=== PATIENT | male | born 1970 | race Caucasian/White ===

== ENCOUNTER 2021-01-17 13:23 | Emergency (ER) | payer OTHER, SELFPAY ==
--- NOTE | ~2021-01-17 | XR_ITS ---
EXAMINATION: XR hip LT 2V w AP pelvis EXAM DATE: 01/17/2021 16:47 INDICATION: Pelvic, left hip pain. Back surgery last week. TECHNIQUE: Left hip frontal, crosstable lateral and 'frog-leg' projections for interpretation. Fronta l projection pelvis. There is no prior study for comparison. FINDINGS: Smooth left hip femoral head contour, no radiographic evidence of avascular necrosis. Ther e is moderate left hip, mild to moderate right hip primary osteoarthritis. There are no acute fractur es or dislocations identified. There is no subcutaneous gas. The soft tissue is unremarkable. The re are no radiopaque foreign bodies. IMPRESSION: Moderate left hip osteoarthritis. Reviewed, dictated and finalized at location A. I SITE LEASING CONSULTANT
[2021-01-17 13:28] VITALS: PULSE 114; RESP 18; TEMP 37.2; O2SAT 98
--- NOTE | 2021-01-17 16:04 | ED.LOWEXIN ---
HPI - Extremity Injury (Lower) General Chief Complaint: Extremity Injury, Lower Stated Complaint: back pain/hip pain Time Seen by Provider: 01/17/21 15:28 Source: patient Mode of arrival: wheelchair Limitations: no limitations History of Present Illness HPI Narrative: Patient is a 50-year-old male complaining of left hip pain, 9 out of 10, sharp, nonradiating started approximately 2 weeks ago due to a fall, was about to have an outpatient MRI of that hip done tonight, ordered by his orthopedic doctor, but states that he is able to tolerate the pain laying on the MRI machine so he was brought here to the emergency room from our MRI department. Patient states that he recently had back surgery done 5 days ago and [facility]. Patient denies any recent injury. Patient denies any weakness, numbness, incontinence, fever or chills. Related Data Home Medications Medication Instructions Recorded Confirmed Acid Transportation Dispatcher (omeprazole) 20 mg HS 01/16/21 01/17/21 amlodipine 10 mg HS 01/16/21 01/17/21 atorvastatin 40 mg PO HS 01/16/21 01/17/21 hydrochlorothiazide 25 mg PO HS 01/16/21 01/17/21 lisinopril 20 mg PO HS 01/16/21 01/17/21 Allergies Allergy/AdvReac Type Severity Reaction Status Date / Time No Known Allergies Allergy Verified 01/16/21 14:52 Review of Systems Review of Systems: All systems reviewed & are unremarkable except as noted in HPI and below Constitutional: Constitutional: Denies body ache(s), Denies chills, Denies excessive sweating, Denies fatigue, Denies fever(s), Denies headache(s), Denies lethargy, Denies malaise, Denies weakness and Denies weight loss Eyes: Eyes: Denies blurry vision, Denies change in vision and Denies loss of vision ENT: Denies dizziness, Denies ear discharge, Denies headache(s), Denies lip swelling, Denies epistaxis, Denies nasal congestion, Denies neck pain, Denies throat swelling and Denies tongue swelling Cardiovascular: Cardiovascular: Denies chest pain, Denies chest pain at rest, Denies chest pain with activity, Denies diaphoresis, Denies rapid heart rate, Denies edema, Denies irregular heart rhythm, Denies lightheadedness, Denies palpitations, Denies dyspnea and Denies dyspnea on exertion Respiratory: Respiratory: Denies chest congestion, Denies cough, Denies hemoptysis, Denies dyspnea and Denies dyspnea on exertion Gastrointestinal: Gastrointestinal: Denies abdominal pain, Denies melena, Denies hematochezia, Denies diarrhea, Denies nausea, Denies vomiting and Denies hematemesis Musculoskeletal: Musculoskeletal: Denies abnormal gait, Denies deformity, Denies joint swelling, Denies limited range of motion, Denies neck pain and Denies numbness Neurologic: Denies Abnormal speech present, Denies abnormal gait, Denies confusion, Denies dizziness, Denies headache(s), Denies focal weakness, Denies loss of vision, Denies numbness, Denies Other visual disturbances, Denies Sensory deficit (Neuro) and Denies weakness Psychiatric: Psychiatric: Denies confusion, Denies depression, Denies auditory hallucinations, Denies homicidal ideation and Denies suicidal ideation Endocrine: Endocrine: Denies cold intolerance, Denies excessive sweating, Denies fatigue, Denies heat intolerance and Denies palpitations Hematologic/Lymphatic: Hematologic/Lymphatic: Denies easy bleeding and Denies easy bruising Allergic/Immunologic: Allergic/Immunologic: Denies lip swelling, Denies throat swelling and Denies tongue swelling PMFSH Family History Family History Grandparent Heart disease Sibling Colitis Sibling Fibromyalgia Father Alcohol abuse Mother Cancer Social History Social History Smoking status: Former smoker Tobacco type: cigarettes Exam Const: General: cooperative, healthy appearing, comfortable, no acute distress, well developed, alert and awake; No confusion
[2021-01-17] MEDS: HYDROcodone/acetaminophen (*CRX) 5-325 MG TABLET 1 TAB PO (16:15)
[2021-01-17] MEDS: KETOROLAC 30 MG/ML VIAL (*BKC) IM (17:59)
[2021-01-17] MEDS: diazePAM INJ (*CRX) 10 MG/2 ML SYRINGE IM (18:00)
--- NOTE | 2021-01-17 18:52 | PC.NURSE ---
pt's mother called and stated that nothing is being done and stated that he needs more pain medication to help with patient's pain. mother recommended we call patient's spinal surgeon. Discuss concerns with ERP and paged oncall physician for Dr Gillespie, the patient's spinal surgeon. Patient states that he does not have a prescription for norco or any other pain medication and stated they came to ED today specifically for medication for MRI. Mother later came to patient's bedside. Mother tearful and stating that [facility] is a trauma hospital and that it is advertised that MRI is available 20/09. Charge nurse aware and spoke with patient and family. Upon discharge, discussed discharge information with patient and mother. Mother states they are not going back to the rehab center and that they are going home. Mother states that it is ridiculous that a physician has not laid hands on him to do a physical exam . mother states that is how you diagnose many issues Discussion and education held with patient and family about further concerns. Mother and patient both stated they will follow up with PCP on Tuesday
== END 2021-01-17 19:11 | disposition home or self-care (01) ==
PROVIDERS: Emergency Provider Emergency Medicine
DX: M25.552 Pain in left hip (principal); Z87.891 Personal history of nicotine dependence
CPT/HCPCS: 73502; 96372; 99284; A9270; J1885; J3360

== ENCOUNTER 2021-01-20 13:57 | Inpatient (IN) | payer MEDICARE, SELFPAY ==
--- NOTE | ~2021-01-20 | MR_ITS ---
EXAMINATION: MR hip LT wo con DATE: 01/20/2021 19:03 INDICATION: Left hip pain post recent back surgery TECHNIQUE: Magnetic resonance imaging (MRI) of the left hip was performed without intravenous contra st. Sequences included full-field axial PD-weighted FS FSE and T1-weighted FSE, coronal of the pelvis with PD-weighted FS FSE, T2-weighted FSE and T1-weighted FSE, small field of view of the affected h ip with axial PD-weighted FS FSE, sagittal PD-weighted FS FSE, coronal PD-weighted FS FSE and reaves l T2 weighted FSE. Additional radial T1-weighted FGR oriented orthogonal to the acetabular rim were o btained for evaluation of the labrum. COMPARISON: None FINDINGS: Bones/labrum/cartilage: Bone alignment is normal. Postoperative change of prior L2-L4 laminectomies. No fracture, avascular necrosis or pathologic marrow replacing process. Mild left hip osteoarthritis with small to moderate- sized marginal osteophytes about the femoral head and acetabulum, the latter partially replacing the degenerated labrum. No degenerative subarticular changes. Similar findings suggested at the contralat eral right hip on the larger field of view images. Likely prior labral cyst at the posterior superior right acetabular labrum. Fluid: Symmetric physiologic amount of fluid within both hip joints. No bursitis or other abnormal fluid col lections. Soft tissues: No asymmetric muscular atrophy in the visualized pelvis or proximal thighs. There is increased muscle signal in the lumbosacral posterior paraspinal musculature slightly more prominent on the right than the left suggesting ongoing denervation change related to the prior more cephalad back surgery. The iliopsoas, gluteal and proximal hamstring tendons are normal. Prostatomegaly measuring 4.7 x 4.0 cm. Limited evaluation of visceral organs of the pelvis is otherwise unremarkable. Small left and moderat e-sized right fat-containing inguinal hernias. No pathologically enlarged pelvic/inguinal lymphadenop athy. IMPRESSION: 1. Relatively symmetric mild bilateral hip osteoarthritis with labral degeneration. 2. L2-L4 laminectomies with increased signal in the posterior lumbosacral paraspinal musculature, rig ht greater than left which can be seen with ongoing denervation change related to prior surgery. 3. Small left and moderate-sized right fat-containing inguinal hernias. Reviewed, dictated and finalized at location A. AND AUXILIARIES SUPERVISOR IMPRESSION: 1. Relatively symmetric mild bilateral hip osteoarthritis with labral degenerat ion. 2. L2-L4 laminectomies with increased signal in the posterior lumbosacral lizbeth avril musculature, right greater than left which can be seen with ongoing dener vation change related to prior surgery. 3. Small left and moderate-sized right fat-containing inguinal hernias.
--- NOTE | ~2021-01-20 | MR_ITS ---
EXAMINATION: MR thoracic spine wo con DATE: 01/20/2021 19:03 INDICATION: Back pain. Sciatica. TECHNIQUE: Magnetic resonance imaging (MRI) of the thoracic spine was performed without intravenous c ontrast. Sagittal localizer T1-weighted FSE of the cervical spine was obtained. Thoracic spine sequen piyush included sagittal T2-weighted FSE, sagittal T1-weighted FSE, sagittal T2-weighted FS FSE, and axi al T2-weighted FSE. COMPARISON: Chest CT 01/19/2021 FINDINGS: There is 6 degrees dextrocurvature of mid thoracic spine. There is 4 degrees levocurvature of upper thoracic spine. There is mild chronic anterior wedging of T11 and T12 vertebral bodies. Ther e are changes of posterior fusion procedure at T10-T11 with pedicle screws. Intervertebral disc heigh ts are normal. At T5-T6, there is a right central protrusion with mild central canal stenosis. At T7- T8, there is a right central extrusion with mild central canal stenosis. At T11, there is a 13 x 10 m m calcified mass in the central spinal canal with deformation of the spinal cord in this area. There is artifact from the screws at T10 and T11. The spinal cord signal intensity is normal where it is we ll visualized superior to the surgical levels. There is multilevel facet joint osteoarthritis, severe on the right at T8-T9 and T9-T10. On the right, there is mild neural foraminal stenosis at T8-T9 and T9-T10. There are bilateral laminotomies at T10 and T11. IMPRESSION: 1. 13 x 10 mm calcified mass in the central spinal canal at T11 with deformation of the spinal cord. Laminotomies and posterior fusion procedure at T10-11. The calcified mass may be a sequestered disc o r meningioma. 2. Mild thoracic spondylosis at other levels. Reviewed, dictated and finalized at location B. NFORMATICIAN IMPRESSION: 1. 13 x 10 mm calcified mass in the central spinal canal at T11 with deformatio n of the spinal cord. Laminotomies and posterior fusion procedure at T10-11. Th e calcified mass may be a sequestered disc or meningioma. 2. Mild thoracic spondylosis at other levels.
--- NOTE | ~2021-01-20 | MR_ITS ---
EXAMINATION: MR lumbar spine wo con DATE: 01/20/2021 19:03 INDICATION: Sciatica. TECHNIQUE: Magnetic resonance imaging (MRI) of the lumbar spine was performed without intravenous con trast. Sequences included sagittal T2-weighted FSE, sagittal T2-weighted FS FSE, sagittal T1-weighted FSE, and axial T2-weighted FSE. COMPARISON: None FINDINGS: There is 5 degrees dextrocurvature of lumbar spine. There is mild chronic anterior wedging of L1 vertebral body. Intervertebral disc heights are normal in lumbar spine. The conus medullaris is at T12. There are laminectomies from L2 to L4. The following disc levels are specifically discussed: L1-L2: The disc does not extend beyond the endplate margin. There is moderate bilateral facet joint o steoarthritis. There is no neural foraminal stenosis. There is no central canal stenosis. L2-L3: The disc is mildly bulging. There is mild bilateral facet joint osteoarthritis. There is mild right neural foraminal stenosis. There is no central canal stenosis. L3-L4: The disc is bulging and has an annular fissure. There is mild bilateral facet joint osteoarthr itis. There is moderate bilateral neural foraminal stenosis. There is no central canal stenosis. L4-L5: The disc is bulging and has an annular fissure. There is moderate bilateral facet joint osteoa rthritis. There is moderate bilateral neural foraminal stenosis. There is mild central canal stenosis with posterior decompression. There is moderate stenosis of the lateral recesses. L5-S1: There is a central protrusion. There is severe bilateral facet joint osteoarthritis. There is mild right neural foraminal stenosis. There is mild central canal stenosis. IMPRESSION: 1. Moderate lumbar spondylosis. Reviewed, dictated and finalized at location B. UNT SUPPORT ASSOCIATE
--- NOTE | ~2021-01-20 | CT_ITS ---
EXAMINATION: CTA chest PE protocol DATE: 01/26/2021 22:34 INDICATION: Tachycardia. TECHNIQUE: Computed tomography angiography (CTA) of the chest was performed with 100 mL Omnipaque-350 intravenous contrast timed to evaluate the pulmonary arteries. Coronal maximum intensity projection 3D-reconstructions were created by the technologist. Automated exposure control and iterative reconst ruction technique were employed. The dose-length product was 966.10 mGy-cm. COMPARISON: Chest CT 01/19/2021 FINDINGS: The lungs demonstrate mild atelectasis. No pleural effusion. The heart size is normal. No p ericardial effusion. There is no pulmonary embolus. There is a 1.7 cm mass of fat in right adrenal gl and, consistent with a myelolipoma. There are healing fractures of right ninth-11th ribs. There are c hanges of posterior fusion procedure at T10-T11. There is a 14 mm calcified mass in central spinal ca nal at T10-T11. IMPRESSION: 1. No pulmonary embolus. 2. 14 mm calcified mass in central spinal canal at T10-T11, which may be a sequestered disc or mening ioma. Reviewed, dictated and finalized at location A. VIORAL HEALTH CASE MANAGER IMPRESSION: 1. No pulmonary embolus. 2. 14 mm calcified mass in central spinal canal at T10-T11, which may be a sequ estered disc or meningioma.
[2021-01-20 14:01] VITALS: BP 127/82; PULSE 120; RESP 18; TEMP 36.8; O2SAT 98
[2021-01-20] MEDS: MORPHINE SULFATE (*CRX) 4 MG/ML INJ IV PUSH ×3 (14:43→19:27)
--- NOTE | 2021-01-20 14:43 | ECG_ITS ---
Measurements Intervals [place] Rate: 123 P: 51 WI: 152 QRS: 36 QRSD: 100 T: 37 QT: 310 QTc: 444 Interpretive Statements SINUS TACHYCARDIA DELAYED PRECORDIAL R/S TRANSITION ABNORMAL ECG Electronically Signed On 01-20-2021 16:29:21 GOLD LEAF LAYER by Marlo Lopez D.O.
--- NOTE | 2021-01-20 15:08 | ED.GENADULT ---
HPI - General Adult General Chief complaint: Extremity Injury, Lower Stated complaint: hip pain Time Seen by Provider: 01/20/21 14:09 Source: patient Mode of arrival: EMS History of Present Illness HPI narrative: Patient is a 50 y/o male complaining of left hip pain starting about 6 days ago. He describes his pain as aching and it becomes sharp sometimes. He rates his pain as 8/10. There is no pain radiation. He states that movement worsens the pain. Of note, he had back surgery 1 week ago at [facility] in [place]. He states that he has no significant back pain. His left hip pain started after surgery while he was undergoing physical therapy. Related Data Home Medications Medication Instructions Recorded Confirmed Acid Gaming Pit Boss (omeprazole) 20 mg HS 01/16/21 01/17/21 amlodipine 10 mg HS 01/16/21 01/17/21 atorvastatin 40 mg PO HS 01/16/21 01/17/21 hydrochlorothiazide 25 mg PO HS 01/16/21 01/17/21 lisinopril 20 mg PO HS 01/16/21 01/17/21 Allergies Allergy/AdvReac Type Severity Reaction Status Date / Time No Known Allergies Allergy Verified 01/21/21 00:42 Review of Systems Constitutional: Constitutional: Denies chills, Denies fever(s), Denies headache(s) and Denies weakness Eyes: Eyes: Denies blurry vision ENT: Denies headache(s) and Denies neck pain Cardiovascular: Cardiovascular: Denies chest pain and Denies dyspnea Respiratory: Respiratory: Denies cough and Denies dyspnea Gastrointestinal: Gastrointestinal: Denies abdominal pain, Denies diarrhea, Denies nausea and Denies vomiting Genitourinary: Genitourinary: Denies hematuria and Denies dysuria Musculoskeletal: Musculoskeletal: Reports as per HPI, Denies back pain, Reports arthralgias (left hip pain) and Denies neck pain Neurologic: Denies headache(s) and Denies weakness [facility] Family History Family History Grandparent Heart disease Sibling Colitis Sibling Fibromyalgia Father Alcohol abuse Mother Cancer Social History Social History Smoking status: Former smoker Tobacco type: cigarettes Alcohol intake: never Substance use: never Spiritual care concerns: No Exam Const: General: no acute distress and well developed Orientation/consciousness: oriented to person, oriented to place, oriented to time and patient oriented x3 HENMT: Head: normocephalic Ears: external ears normal General nose exam: Normal external nose present Eyes: General: appearance normal, both eyes and all related structures Conjunctivae: conjunctivae normal Neck: Neck: normal visual inspection and full ROM Chest: Chest palpation & inspection: normal inspection of the chest and no tenderness Resp: Effort & Inspection: normal respiratory effort Auscultation: clear to auscultation bilaterally Cardio: Rate: tachycardic Rhythm: regular rhythm GI: GI Palp: No abdominal tenderness and Yes Soft to palpation Skin: General skin exam: normal color and turgor normal Wounds: wounds noted (incision on back clean and intact) Neuro: General: oriented to person, oriented to place, oriented to time and patient oriented x3 Cognition (Neuro): normal cognition Extrem: General: normal to inspection, full ROM and no pedal edema Psych: Appearance: grossly normal Mental Status: mental status grossly normal Affect: normal affect Course Reevaluation(s) Reevaluation #1: Rechecked. Discussed with patient about MRI results. Patient states that he still has severe left hip. Patient and mother would like ortho evaluation. Date: 01/20/21 Time: 21:29 Reevaluation #2: I asked Dr. Leblanc to discuss the case with hospitalist for admission. Date: 01/20/21 Time: 21:40 Consultations Consultation #1: Discussed with Dr. Montnao, who agrees to consult regarding patient's hip pain. Date: 01/20/21 Time: 21:33 Vital Signs Vital signs: Vital Signs Temperature 36.8 C 01/20/21 14:01
[2021-01-20 15:20] LABS: CRP < 0.5 mg/dL (<1.0)
[2021-01-20 15:52] LABS: Basophils Percent Auto 0.3 % (0.2-1.2); Eosinophils Absolute Auto 0.1 K/mm3 (0-0.3); Eosinophils Percent Auto 1.1 % (0-4.4); Hematocrit 47.2 % (42.0-52.0); Hemoglobin 16.3 g/dL (14.0-18.0); Immature Granulocyte Absolute 0.07 K/mm3 (0.00-0.031); Immature Granulocyte Percent A 0.6 % (0-0.5); Lymphocytes Absolute Auto 2.02 K/mm3 (0.9-3.2); Lymphocytes Percent Auto 17.4 % (18.3-44.2); Mean Corpuscular HGB Conc 34.5 g/dl (32-36); Mean Corpuscular Hemoglobin 30.9 pg (26-34); Mean Corpuscular Volume 89.4 fl (80-100); Mean Platelet Volume 9.1 fl (7.4-10.4); Monocytes Absolute Auto 0.9 K/mm3 (0.1-0.6); Monocytes Percent Auto 8.1 % (2.6-8.5); Neutrophils Absolute Auto 8.4 K/mm3 (1.3-6.7); Neutrophils Percent Auto 72.5 % (45.5-73.1); Platelet Count Result 274 k/mm3 (150-375); Red Blood Count 5.28 M/mm3 (4.6-6.20); Red Cell Distribution Width 11.9 % (11.5-14.5); White Blood Count 11.6 K/mm3 (4.5-10.0)
[2021-01-20 16:25] VITALS: BP 124/75; PULSE 117; RESP 20; O2SAT 99
[2021-01-20 16:25] LABS: Erythrocyte Sedimentation Rate 16 mm/hr (0-20)
[2021-01-20] MEDS: LORazepam INJ (*CRX) 2 MG/ML VIAL 1 MG IV PUSH (17:02)
[2021-01-20 17:21] LABS: Alanine Aminotransferase 16 U/L (4-50); Albumin Level 4.4 g/dL (3.5-5.1); Alkaline Phosphatase 99 U/L (38-126); Anion Gap 9 mmol/L (8-16); Aspartate Amino Transferase 29 U/L (17-59); Bilirubin,Total 0.4 mg/dL (0.2-1.3); Blood Urea Nitrogen 14 mg/dL (9-20); Calcium 9.9 mg/dL (8.4-10.2); Carbon Dioxide 27 mmol/L (22-30); Chloride 99 mmol/L (98-107); Estimated CRCL calculation 162 ml/min; Estimated Glomerular Filt Rate > 60; Glucose 159 mg/dL (65-110); Sodium 135 mmol/L (137-145)
[2021-01-20 19:10] VITALS: BP 126/78; PULSE 78; RESP 18; O2SAT 99
[2021-01-20 21:05] VITALS: BP 129/87; PULSE 98; RESP 20; O2SAT 99
--- NOTE | 2021-01-20 23:10 | ADMGEN ---
This patient, Chintan Nguyen, was admitted to Medical Room 247-. Patient/family oriented to hospital policies and general routines including ID bracelet, bed and alarms, visiting hours, pain management, procedures, bathroom and other care routines, personal items, smoking policy, room service/diet, and visiting hours. Information on how to activate the Rapid Response Team has been discussed. Patient/Family are encouraged to report perceived risks to care and to ask questions if they do not understand what they are told or what they should do.
[2021-01-20 23:13] VITALS: BMI 35.6
[2021-01-20 23:14] VITALS: BP 123/68; PULSE 123; RESP 20; TEMP 36.6; O2SAT 97
[2021-01-20] MEDS: HYDROcodone/acetaminophen (*CRX) 5-325 MG TABLET 2 TAB PO (23:24)
[2021-01-20 23:25] VITALS: O2SAT 94
[2021-01-21 04:05] VITALS: BP 117/78; PULSE 111; RESP 20; TEMP 36.1; O2SAT 94
[2021-01-21] MEDS: HYDROcodone/acetaminophen (*CRX) 5-325 MG TABLET 2 TAB PO ×4 (04:11→20:12)
--- NOTE | 2021-01-21 04:36 | PM.IMHP ---
H&P: HPI History of Present Illness Date/Time: 01/21/21 04:36 Chief Complaint: Left hip pain Narrative: This is a 50-year-old male with past medical history significant for GERD, dyslipidemia, hypertension, patient is status post spinal surgery with fusion at the level of T10 he presented to the emergency room 2 times prior to to night due to left hip pain initially x-ray of the hip did not show any acute fractures patient was sent home to return at this time a CT of the hip was done which was unremarkable patient was again discharged home to return due to excruciating worsening pain of the left hip unable to bear weight on it this time an MRI did not show any acute fractures again however patient is unable to ambulate due to unbearable pain upon weight-bearing pain starts on the left flank comes down to the groin area. Patient denies any fevers any rigors, any chills, any nausea, any vomiting, any incontinence of bowels or retention of urine, no focal weakness, no cough, no sputum production, no recent falls. Patient is been admitted for further management evaluation and treatment. Review of Systems Review of Systems: Left hip pain unable to bear weight on it Constitutional: Constitutional: Denies chills, Denies fatigue, Denies fever(s), Denies frequent falls, Denies lethargy, Denies night sweats, Denies poor appetite and Denies weakness Eyes: Eyes: Denies change in vision ENT: Denies dysphagia, Denies vertigo, Denies dizziness, Denies nasal congestion, Denies nasal discharge, Denies nasal obstruction and Denies odynophagia Cardiovascular: Cardiovascular: Denies chest pain, Denies irregular heart rhythm, Denies lightheadedness, Denies radiating jaw, neck or arm pain, Denies palpitations, Denies dyspnea, Denies dyspnea on exertion and Denies orthopnea Respiratory: Respiratory: Denies cough, Denies dyspnea and Denies wheezing Gastrointestinal: Gastrointestinal: Denies abdominal pain, Denies dyspepsia, Denies heartburn, Denies diarrhea, Denies nausea and Denies vomiting Genitourinary: Genitourinary: Reports no additional male genitourinary complaints and Reports as per HPI Musculoskeletal: Musculoskeletal: Denies back pain, Reports arthralgias, Denies joint swelling, Reports limited range of motion, Denies neck pain and Denies numbness Comments: Left hip pain upon weight-bearing Integumentary/Breasts: Skin/Breast: Denies rash Neurologic: Denies vertigo, Denies dizziness, Denies syncope, Denies frequent falls, Denies focal weakness, Denies restless legs, Denies Sensory deficit (Neuro) and Denies weakness Psychiatric: Psychiatric: Reports no additional psychiatric complaints and Reports as per HPI Endocrine: Endocrine: Reports no additional endocrine complaints and Reports as per HPI Hematologic/Lymphatic: Hematologic/Lymphatic: Reports no additional hematologic/lymphatic complaints and Reports as per HPI Allergic/Immunologic: Allergic/Immunologic: Reports no additional allergic/immunologic complaints and Reports as per HPI [facility] Family History Family History Grandparent Heart disease Sibling Colitis Sibling Fibromyalgia Father Alcohol abuse Mother Cancer Social History Social History Smoking status: Former smoker Tobacco type: cigarettes Alcohol intake: never Substance use: never Spiritual care concerns: No Meds Home Medications and Allergies Home Medications Medication Instructions Recorded Confirmed Type Acid Senior Net Application Developer (omeprazole) 20 mg HS 01/16/21 01/20/21 History amlodipine 10 mg HS 01/16/21 01/20/21 History atorvastatin 40 mg PO HS 01/16/21 01/20/21 History hydrochlorothiazide 25 mg PO HS 01/16/21 01/20/21 History lisinopril 20 mg PO HS 01/16/21 01/20/21 History Allergies Allergy/AdvReac Type Severity Reaction Status Date / Time No Known Allergies Allergy Verified 01/21/21 00:42 Vital
--- NOTE | 2021-01-21 06:50 | PM.IMPN ---
Progress Note: A&P Assessment and Plan (1) Left flank pain: Code(s): R10.9 - Unspecified abdominal pain Status: Acute Assessment and Plan: CT of abdomen and pelvis showed nephrolithiasis on prior study However pain is more localized to the left hip and worse upon weight-bearing on it is likely to be a nephritic colic Supportive care (2) Left hip pain: Code(s): M25.552 - Pain in left hip Status: Acute Assessment and Plan: MRI with no acute fractures Appreciate recs from orthopedic surgery Supportive care (3) Acid reflux: Code(s): K21.9 - Gastro-esophageal reflux disease without esophagitis Status: Acute Assessment and Plan: Continue PPI (4) Chronic back pain: Code(s): M54.9 - Dorsalgia, unspecified; G89.29 - Other chronic pain Status: Acute Assessment and Plan: Status post spinal fusion surgery Tylenol as needed PT OT (5) Hyperlipidemia: Code(s): E78.5 - Hyperlipidemia, unspecified Status: Acute Assessment and Plan: Continue statin (6) Hypertension: Code(s): I10 - Essential (primary) hypertension Status: Acute Assessment and Plan: Continue home meds Continue to monitor (7) Central stenosis of spinal canal: Code(s): M48.00 - Spinal stenosis, site unspecified Status: Acute Assessment and Plan: Status post spinal fusion Subjective Date/time seen: Date of Service 01/21/21 06:50 Patient says he had back surgery that went extremely well on 01/12/2021 in [place], [place] and walked without pain not longer after the surgery. During physical therapy the patient says he did a maneuver and subsequently developed right hip pain. The pain has progressed to where he says he can no longer participate fully in physical therapy. Patient says his back feels great but that he feels pain inside his hip. He wonders if a steroid injection might help. Review of Systems Musculoskeletal: Musculoskeletal: Reports arthralgias and Reports stiffness Exam Narrative: GENERAL: Almost tearful and sweating profusely HEENT: Normocephalic, atraumatic, anicteric, wearing eyeglasses NECK: Supple CV: Normal S1, S2, RRR, No MRG RESP: CTAB, Normal work of breathing. Abdomen: Soft, non-tender, non-distended, +BS EXTREMITIES: Warm and well perfused, no clubbing, cyanosis, or edema. Decreased ROM in right LE. Cannot lay on side to complete full exam of hip ROM. SKIN: warm, dry and intact. NEURO: CN 2-12 grossly intact. Objective Data Vital Signs Vital Signs: Vital Signs - 24 hr 01/20/21 14:01 01/20/21 16:25 01/20/21 19:10 Temperature 98.2 F Pulse Rate 120 H 117 H 78 Respiratory Rate 18 20 18 Blood Pressure 127/82 124/75 126/78 Pulse Oximetry 98 99 99 01/20/21 21:05 01/20/21 23:14 01/20/21 23:25 Temperature 98 F Pulse Rate 98 123 H Respiratory Rate 20 20 Blood Pressure 129/87 123/68 Pulse Oximetry 99 97 94 01/21/21 04:05 Temperature 97 F L Pulse Rate 111 H Respiratory Rate 20 Blood Pressure 117/78 Pulse Oximetry 94 Intake/Output Intake/Output: Intake & Output 01/18/21 01/19/21 01/20/21 01/21/21 23:59 23:59 23:59 23:59 Intake Total 290 Output Total 400 Balance -110 Meds/Results Medications: Active Medications Generic Name Dose Route Start Last Admin Trade Name Freq PRN Reason Stop Dose Admin Acetaminophen 650 mg 01/20/21 22:01 Acetaminophen 325 Mg Tablet PO Q4H PRN Mild Pain (1-3) or Fever Hydrocodone Bitart/Acetaminophen 2 tab 01/20/21 22:01 01/21/21 04:11 Hydrocodone/Acetaminophen (*Crx) 5-325 Mg Tablet PO 2 tab Q4H PRN Administration Pain Rated 4-6 Acetaminophen 1,000 mg in 100 mls @ 400 mls/hr 01/20/21 23:09 Ofirmev 1,000 Mg Ivpb IVPB 01/21/21 23:08 Q6H PRN Pain Rated 4-6 Morphine Sulfate 4 mg 01/20/21 22:01 Morphine Sulfate (*Crx) 4 Mg/Ml Inj IV PUSH Q2H PRN Pain Rated 7-10
--- NOTE | 2021-01-21 14:05 | PCPTNOTE ---
PT evaluation attempted this date, patient adamantly refused until after ortho consult secondary to pain being too intense, will continue to follow.
--- NOTE | 2021-01-21 14:42 | PCOTNOTE ---
Spoke with pt. who refused therapy until after ortho consultation due to increased pain and difficulty with functional mobility. Will follow up when agreeable.
[2021-01-21 15:10] VITALS: BP 136/75; PULSE 116; RESP 22; TEMP 36.8; O2SAT 96
--- NOTE | 2021-01-21 15:54 | PM.CNOR ---
Assessment and Plan Additional Plan Neuritic quality of pain 3 weeks s/p a low thoracic fusion consider streroid prep. A medrol dose pack or even a slightly higher dose would be approp is medically appropriate. contact surgeon and get more guidance on further rx. History of Present Illness HPI Consult date: 01/21/21 Chief complaint: Left Hip Pain Narrative: Pt is about 3 weeks from a T10 fusion. Did well early post op then while in PT developed burning very intense pain which is incapacitating when he is standing. [facility] Family History Family History Grandparent Heart disease Sibling Colitis Sibling Fibromyalgia Father Alcohol abuse Mother Cancer Social History Social History Smoking status: Former smoker Tobacco type: cigarettes Alcohol intake: never Substance use: never Spiritual care concerns: No Meds Home Medications and Allergies Home Medications Medication Instructions Recorded Confirmed Type Acid [employer] (omeprazole) 20 mg HS 01/16/21 01/20/21 History amlodipine 10 mg HS 01/16/21 01/20/21 History atorvastatin 40 mg PO HS 01/16/21 01/20/21 History hydrochlorothiazide 25 mg PO HS 01/16/21 01/20/21 History lisinopril 20 mg PO HS 01/16/21 01/20/21 History Allergies Allergy/AdvReac Type Severity Reaction Status Date / Time No Known Allergies Allergy Verified 01/21/21 00:42 Vital Signs Vital Signs - 24 hr 01/20/21 16:25 01/20/21 19:10 01/20/21 21:05 Temperature Pulse Rate 117 H 78 98 Respiratory Rate 20 18 20 Blood Pressure 124/75 126/78 129/87 Pulse Oximetry 99 99 99 01/20/21 23:14 01/20/21 23:25 01/21/21 04:05 Temperature 36.6 C 36.1 C L Pulse Rate 123 H 111 H Respiratory Rate 20 20 Blood Pressure 123/68 117/78 Pulse Oximetry 97 94 94 01/21/21 15:10 Temperature 36.8 C Pulse Rate 116 H Respiratory Rate 22 H Blood Pressure 136/75 Pulse Oximetry 96 Exam Extrem: Other: Inciision is C+D No warmth or erythema No drainage. Gentle IR and ER of hip is relatively painless. Burning neuritic quality of pain over gr troch area Direct pressure worsens this and standing aggravates it xrays of hip were WNL Distally he has clonus in ankle but states this antedates this recent surgery and is from prior surg. Sens in dorsum of foot is actually improved since surgery states he feels this first time since before surg. Results Labs Result Diagrams: 01/20/21 15:45 01/20/21 14:56 Labs: Abnormal lab results 01/20/21 01/20/21 Range/Units 14:56 15:45 WBC 11.6 H (4.5-10.0) K/mm3 Immature Gran % (Auto) 0.6 H (0-0.5) % Lymph % (Auto) 17.4 L (18.3-44.2) % [place] # (Auto) 0.9 H (0.1-0.6) K/mm3 Abs Immat Gran (auto) 0.07 H (0.00-0.031) K/mm3 Absolute Neuts (auto) 8.4 H (1.3-6.7) K/mm3 Sodium 135 L (137-145) mmol/L Creatinine 0.60 L (0.7-1.3) mg/dL Glucose 159 H (65-110) mg/dL H & H 01/20/21 Range/Units 15:45 Hgb 16.3 (14.0-18.0) g/dL Hct 47.2 (42.0-52.0) % All other labs normal.
[2021-01-21 20:12] VITALS: BP 134/86; PULSE 65; RESP 20; TEMP 36.2; O2SAT 94
[2021-01-21] MEDS: methocarbamoL 500 MG TABLET PO (23:43)
[2021-01-22] VITALS (8 sets, daily range): BP systolic 128–144; BP diastolic 80–91; PULSE 97–118; RESP 16–20; TEMP 36.1–36.6; O2SAT 97–98
[2021-01-22] MEDS: MORPHINE SULFATE (*CRX) 4 MG/ML INJ IV PUSH ×5 (02:41→22:22)
[2021-01-22] MEDS: HYDROcodone/acetaminophen (*CRX) 5-325 MG TABLET 2 TAB PO ×4 (05:51→20:15)
[2021-01-22 06:02] LABS: Basophils Percent Auto 0.2 % (0.2-1.2); Eosinophils Percent Auto 0.4 % (0-4.4); Hematocrit 42.7 % (42.0-52.0); Hemoglobin 14.9 g/dL (14.0-18.0); Immature Granulocyte Absolute 0.07 K/mm3 (0.00-0.031); Immature Granulocyte Percent A 0.6 % (0-0.5); Lymphocytes Absolute Auto 2.44 K/mm3 (0.9-3.2); Lymphocytes Percent Auto 21.6 % (18.3-44.2); Mean Corpuscular HGB Conc 34.9 g/dl (32-36); Mean Corpuscular Hemoglobin 30.5 pg (26-34); Mean Corpuscular Volume 87.5 fl (80-100); Mean Platelet Volume 9.2 fl (7.4-10.4); Neutrophils Absolute Auto 7.7 K/mm3 (1.3-6.7); Neutrophils Percent Auto 68.2 % (45.5-73.1); Platelet Count Result 285 k/mm3 (150-375); Red Blood Count 4.88 M/mm3 (4.6-6.20); Red Cell Distribution Width 11.9 % (11.5-14.5); White Blood Count 11.3 K/mm3 (4.5-10.0)
[2021-01-22 06:09] LABS: Anion Gap 6 mmol/L (8-16); Blood Urea Nitrogen 18 mg/dL (9-20); Calcium 9.7 mg/dL (8.4-10.2); Carbon Dioxide 30 mmol/L (22-30); Chloride 103 mmol/L (98-107); Estimated CRCL calculation 140 ml/min; Estimated Glomerular Filt Rate > 60; Glucose 165 mg/dL (65-110); Sodium 139 mmol/L (137-145)
--- NOTE | 2021-01-22 06:45 | PM.IMPN ---
Progress Note: A&P Assessment and Plan (1) Left hip pain: Code(s): M25.552 - Pain in left hip Status: Acute Assessment and Plan: MRI with no acute fractures. Symmetric mild bilateral hip OA with labral degeneration. L2-L4 laminectomies with increased signal in the posterior lumbosacral paraspinal musculature, right greater than left which can be seen with ongoing denervation change related to prior surgery. -Appreciate recs from orthopedic surgery -Methocarbamol 500 mg four times a day as needed -Tylenol PRN -[place] PRN -Morphine PRN (2) Left flank pain: Code(s): R10.9 - Unspecified abdominal pain Status: Acute Assessment and Plan: CT of abdomen and pelvis showed nephrolithiasis on prior study. Pain more localized to the left hip and worse upon weight-bearing on it is likely to be a nephritic colic -Tylenol PRN (3) Acid reflux: Code(s): K21.9 - Gastro-esophageal reflux disease without esophagitis Status: Acute Assessment and Plan: Continue PPI (4) Chronic back pain: Code(s): M54.9 - Dorsalgia, unspecified; G89.29 - Other chronic pain Status: Acute Assessment and Plan: S/p spinal fusion surgery with resolution of his back pain. Tylenol as needed -Physical Therapy -Occupational (5) Hyperlipidemia: Code(s): E78.5 - Hyperlipidemia, unspecified Status: Acute Assessment and Plan: Continue statin (6) Hypertension: Code(s): I10 - Essential (primary) hypertension Status: Acute Assessment and Plan: Continue home meds Continue to monitor (7) Central stenosis of spinal canal: Code(s): M48.00 - Spinal stenosis, site unspecified Status: Acute Assessment and Plan: Status post spinal fusion Subjective Date/time seen: Date of Time 01/22/21 06:45 Patient says he is much better today. He says with a little more PT he will be able to go back to rehab and complete the 3 hours/day inpatient rehab requirement. He says nursing has helped him with a routine that significantly relieves his pain. Review of Systems Musculoskeletal: Musculoskeletal: Denies back pain, Reports arthralgias and Reports stiffness Exam Narrative: GENERAL: NAD, lying on the right side HEENT: Normocephalic, atraumatic, anicteric, wearing eyeglasses NECK: Supple CV: Normal S1, S2, RRR, No MRG RESP: CTAB, Normal work of breathing. Abdomen: Soft, non-tender, non-distended, +BS EXTREMITIES: Warm and well perfused, no clubbing, cyanosis, or edema. SKIN: warm, dry and intact. NEURO: CN 2-12 grossly intact. Objective Data Vital Signs Vital Signs: Vital Signs - 24 hr 01/21/21 15:10 01/21/21 20:12 01/22/21 00:00 Temperature 98.2 F 97.1 F L 97.5 F L Pulse Rate 116 H 65 100 Respiratory Rate 22 H 20 20 Blood Pressure 136/75 134/86 136/84 Pulse Oximetry 96 94 97 01/22/21 03:55 01/22/21 05:26 Temperature 96.9 F L 96.9 F L Pulse Rate 97 Respiratory Rate 20 Blood Pressure 128/80 Pulse Oximetry 98 Intake/Output Intake/Output: Intake & Output 01/19/21 01/20/21 01/21/21 01/22/21 23:59 23:59 23:59 23:59 Intake Total 1990 390 Output Total 1800 40 Balance 190 350 Meds/Results Medications: Active Medications Generic Name Dose Route Start Last Admin Trade Name Freq PRN Reason Stop Dose Admin Acetaminophen 650 mg 01/20/21 22:01 Acetaminophen 325 Mg Tablet PO Q4H PRN Mild Pain (1-3) or Fever Hydrocodone Bitart/Acetaminophen 2 tab 01/20/21 22:01 01/22/21 05:51 Hydrocodone/Acetaminophen (*Crx) 5-325 Mg Tablet PO 2 tab Q4H PRN Administration Pain Rated 4-6 Methocarbamol 500 mg 01/21/21 14:47 01/21/21 23:43 Methocarbamol 500 Mg Tablet PO 500 mg QID PRN Administration muscle spasms Morphine Sulfate 4 mg 01/20/21 22:01 01/22/21 02:41 Morphine Sulfate (*Crx) 4 Mg/Ml Inj IV PUSH 4 mg Q2H PRN Administration Pain Rated 7-10
[2021-01-22] MEDS: methocarbamoL 500 MG TABLET PO (09:21)
--- NOTE | 2021-01-22 11:36 | PCOTNOTE ---
Pt refused OT evaluation due to significant increase in pain with movement. Will followup with patient at later time to complete evaluation. Nursing staff notified of pain status.
[2021-01-23] MEDS: HYDROcodone/acetaminophen (*CRX) 5-325 MG TABLET 2 TAB PO ×5 (00:26→22:50)
[2021-01-23 02:00] VITALS: BP 137/87; PULSE 86; RESP 16; TEMP 36.2; O2SAT 96
[2021-01-23] MEDS: MORPHINE SULFATE (*CRX) 4 MG/ML INJ IV PUSH ×2 (02:45→06:42)
[2021-01-23 05:59] LABS: Anion Gap 6 mmol/L (8-16); Blood Urea Nitrogen 18 mg/dL (9-20); Calcium 9.5 mg/dL (8.4-10.2); Carbon Dioxide 30 mmol/L (22-30); Chloride 103 mmol/L (98-107); Estimated CRCL calculation 140 ml/min; Estimated Glomerular Filt Rate > 60; Glucose 161 mg/dL (65-110); Potassium 3.9 mmol/L (3.4-5.0); Sodium 139 mmol/L (137-145)
[2021-01-23 06:00] VITALS: BP 140/88; PULSE 96; RESP 16; TEMP 36.1; O2SAT 96
--- NOTE | 2021-01-23 07:24 | PM.IMPN ---
Progress Note: A&P Assessment and Plan (1) Left hip pain: Code(s): M25.552 - Pain in left hip Status: Acute Assessment and Plan: MRI with no acute fractures. Symmetric mild bilateral hip OA with labral degeneration. L2-L4 laminectomies with increased signal in the posterior lumbosacral paraspinal musculature, right greater than left which can be seen with ongoing denervation change related to prior surgery. -Appreciate recs from orthopedic surgery -Methocarbamol 500 mg four times a day as needed -Tylenol PRN -[place] PRN -Morphine PRN -Add gabapentin (2) Left flank pain: Code(s): R10.9 - Unspecified abdominal pain Status: Acute Assessment and Plan: CT of abdomen and pelvis showed nephrolithiasis on prior study. Pain more localized to the left hip and worse upon weight-bearing on it is likely to be a nephritic colic -Tylenol PRN (3) Acid reflux: Code(s): K21.9 - Gastro-esophageal reflux disease without esophagitis Status: Acute Assessment and Plan: Continue PPI (4) Chronic back pain: Code(s): M54.9 - Dorsalgia, unspecified; G89.29 - Other chronic pain Status: Acute Assessment and Plan: S/p spinal fusion surgery with resolution of his back pain. Tylenol as needed -Physical Therapy -Occupational (5) Hyperlipidemia: Code(s): E78.5 - Hyperlipidemia, unspecified Status: Acute Assessment and Plan: Continue statin (6) Hypertension: Code(s): I10 - Essential (primary) hypertension Status: Acute Assessment and Plan: Continue home meds Continue to monitor (7) Central stenosis of spinal canal: Code(s): M48.00 - Spinal stenosis, site unspecified Status: Acute Assessment and Plan: Status post spinal fusion Subjective Date/time seen: Date of Service 01/23/21 07:24 Patient says pain has returned. He was previously taking 2600 mg gabapentin a day for back pain and felt it was not helpfu. Review of Systems Musculoskeletal: Musculoskeletal: Denies back pain and Reports arthralgias Exam Narrative: GENERAL: NAD, lying on the right side HEENT: Normocephalic, atraumatic, anicteric, wearing eyeglasses NECK: Supple CV: Normal S1, S2, RRR, No MRG RESP: CTAB, Normal work of breathing. Abdomen: Soft, non-tender, non-distended, +BS EXTREMITIES: Warm and well perfused, no clubbing, cyanosis, or edema. SKIN: warm, dry and intact. NEURO: CN 2-12 grossly intact. Objective Data Vital Signs Vital Signs: Vital Signs - 24 hr 01/22/21 09:21 01/22/21 10:38 01/22/21 14:15 Temperature 97.7 F 97.7 F Pulse Rate 108 H 98 Respiratory Rate 18 18 18 Blood Pressure 131/81 142/85 H Pulse Oximetry 98 98 97 01/22/21 18:22 01/22/21 21:38 01/23/21 02:00 Temperature 97.9 F 97.7 F 97.1 F L Pulse Rate 118 H 114 H 86 Respiratory Rate 18 16 16 Blood Pressure 144/88 H 139/91 H 137/87 Pulse Oximetry 97 98 96 01/23/21 06:00 Temperature 96.9 F L Pulse Rate 96 Respiratory Rate 16 Blood Pressure 140/88 Pulse Oximetry 96 Intake/Output Intake/Output: Intake & Output 01/20/21 01/21/21 01/22/21 01/23/21 23:59 23:59 23:59 23:59 Intake Total 1990 1390 300 Output Total 1800 1365 600 Balance 190 25 -300 Meds/Results Medications: Active Medications Generic Name Dose Route Start Last Admin Trade Name Freq PRN Reason Stop Dose Admin Acetaminophen 650 mg 01/20/21 22:01 Acetaminophen 325 Mg Tablet PO Q4H PRN Mild Pain (1-3) or Fever Hydrocodone Bitart/Acetaminophen 2 tab 01/20/21 22:01 01/23/21 04:52 Hydrocodone/Acetaminophen (*Crx) 5-325 Mg Tablet PO 2 tab Q4H PRN Administration Pain Rated 4-6 Methocarbamol 500 mg 01/21/21 14:47 01/22/21 09:21 Methocarbamol 500 Mg Tablet PO 500 mg QID PRN Administration muscle spasms Morphine Sulfate 4 mg 01/20/21 22:01 01/23/21 06:42 Morphine Sulfate (*Crx) 4 Mg/Ml Inj IV PUSH 4
[2021-01-23 07:42] LABS: Hemoglobin A1C 6.9 % (<5.7)
[2021-01-23] MEDS: methocarbamoL 500 MG TABLET PO ×3 (08:08→20:12)
--- NOTE | 2021-01-23 08:19 | PCOTNOTE ---
Attempted to see for evaluation, nurse requested we hold off due to pt. having just received muscle relaxer. Will follow-up later
[2021-01-23] MEDS: GABAPENTIN 300 MG CAPSULE PO ×3 (09:07→16:18)
[2021-01-23] MEDS: SERTRALINE HCL 50 MG TABLET PO (09:07)
[2021-01-23 09:50] VITALS: BP 130/89; PULSE 109; RESP 16; TEMP 36.6; O2SAT 97
[2021-01-23 14:00] VITALS: BP 148/98; PULSE 98; RESP 16; TEMP 36.9; O2SAT 98
[2021-01-23 17:45] VITALS: BP 160/100; PULSE 121; RESP 20; TEMP 37.4; O2SAT 97
[2021-01-23] MEDS: ATORVASTATIN 40 MG TABLET PO (20:11)
[2021-01-23] MEDS: amLODIPine BESYLATE 5 MG TABLET 10 MG PO (20:11)
[2021-01-23] MEDS: lisinopriL 20 MG TABLET PO (20:12)
[2021-01-23] MEDS: hydroCHLOROthiazide 25 MG TABLET PO (20:12)
[2021-01-23] MEDS: FAMOTIDINE 10 MG TABLET PO (20:13)
[2021-01-23 21:26] VITALS: BP 147/91; PULSE 94; RESP 16; TEMP 36.3; O2SAT 95
[2021-01-24] MEDS: HYDROcodone/acetaminophen (*CRX) 5-325 MG TABLET 2 TAB PO ×5 (04:15→22:13)
[2021-01-24 05:25] VITALS: BP 115/75; PULSE 108; RESP 16; TEMP 36.7; O2SAT 94
[2021-01-24 06:12] LABS: Basophils Percent Auto 0.4 % (0.2-1.2); Eosinophils Absolute Auto 0.1 K/mm3 (0-0.3); Hemoglobin 16.4 g/dL (14.0-18.0); Immature Granulocyte Absolute 0.07 K/mm3 (0.00-0.031); Immature Granulocyte Percent A 0.7 % (0-0.5); Lymphocytes Absolute Auto 2.73 K/mm3 (0.9-3.2); Lymphocytes Percent Auto 27.9 % (18.3-44.2); Mean Corpuscular HGB Conc 34.9 g/dl (32-36); Mean Corpuscular Hemoglobin 31.2 pg (26-34); Mean Corpuscular Volume 89.4 fl (80-100); Mean Platelet Volume 9.3 fl (7.4-10.4); Monocytes Absolute Auto 0.9 K/mm3 (0.1-0.6); Monocytes Percent Auto 9.3 % (2.6-8.5); Neutrophils Absolute Auto 5.9 K/mm3 (1.3-6.7); Neutrophils Percent Auto 60.7 % (45.5-73.1); Platelet Count Result 283 k/mm3 (150-375); Red Blood Count 5.26 M/mm3 (4.6-6.20); Red Cell Distribution Width 11.9 % (11.5-14.5); White Blood Count 9.8 K/mm3 (4.5-10.0)
--- NOTE | 2021-01-24 07:49 | PM.IMPN ---
Progress Note: A&P Assessment and Plan (1) Left hip pain: Code(s): M25.552 - Pain in left hip Status: Acute Assessment and Plan: MRI with no acute fractures. Symmetric mild bilateral hip OA with labral degeneration. L2-L4 laminectomies with increased signal in the posterior lumbosacral paraspinal musculature, right greater than left which can be seen with ongoing denervation change related to prior surgery. -Methocarbamol 500 mg four times a day as needed -Tylenol PRN -[place] PRN -Morphine PRN -Gabapentin 300 mg TID scheduled -Plan is to discharge patient back to inpatient rehab (2) Left flank pain: Code(s): R10.9 - Unspecified abdominal pain Status: Acute Assessment and Plan: CT of abdomen and pelvis showed nephrolithiasis on prior study. Pain more localized to the left hip and worse upon weight-bearing on it is likely to be a nephritic colic -Tylenol PRN (3) Acid reflux: Code(s): K21.9 - Gastro-esophageal reflux disease without esophagitis Status: Acute Assessment and Plan: Continue PPI (4) Chronic back pain: Code(s): M54.9 - Dorsalgia, unspecified; G89.29 - Other chronic pain Status: Acute Assessment and Plan: S/p spinal fusion surgery with resolution of his back pain. Tylenol as needed -Physical Therapy -Occupational (5) Hyperlipidemia: Code(s): E78.5 - Hyperlipidemia, unspecified Status: Acute Assessment and Plan: Continue statin (6) Hypertension: Code(s): I10 - Essential (primary) hypertension Status: Acute Assessment and Plan: Takes amlodipine 10 mg daily, lisinopril 20 mg daily and hydrochlorothiazide 25 mg po daily at home. -Home BP medications restarted (7) Central stenosis of spinal canal: Code(s): M48.00 - Spinal stenosis, site unspecified Status: Acute Assessment and Plan: Initial back surgery was a few years ago and patient did not have significant improvement of his pain. Latest back surgery was 01/12/2021, which has significantly improved patient back pain. Patient does have some residual clonus in the LLE. Subjective Date/time seen: Date of Service 01/24/21 07:49 Patient feels he is doing better today. Says he has already worked with phyiscal therapy this morning and the therapist helped him with his hip pain. Feels the gabapentin has not completely worked but says he would like to space out his pain medication to every 6 hours today. Review of Systems Musculoskeletal: Musculoskeletal: Denies back pain, Reports arthralgias and Reports stiffness Exam Narrative: GENERAL: NAD, lying on the right side HEENT: Normocephalic, atraumatic, anicteric, wearing eyeglasses NECK: Supple CV: Normal S1, S2, RRR, No MRG RESP: CTAB, Normal work of breathing. Abdomen: Soft, non-tender, non-distended, +BS EXTREMITIES: Warm and well perfused, no clubbing, cyanosis, or edema. SKIN: warm, dry and intact. NEURO: CN 2-12 grossly intact. Objective Data Vital Signs Vital Signs: Vital Signs - 24 hr 01/23/21 09:50 01/23/21 14:00 01/23/21 17:45 Temperature 97.8 F 98.4 F 99.3 F Pulse Rate 109 H 98 121 H Respiratory Rate 16 16 20 Blood Pressure 130/89 148/98 H 160/100 H Pulse Oximetry 97 98 97 01/23/21 21:26 01/24/21 05:25 Temperature 97.3 F L 98.0 F Pulse Rate 94 108 H Respiratory Rate 16 16 Blood Pressure 147/91 H 115/75 Pulse Oximetry 95 94 Intake/Output Intake/Output: Intake & Output 01/21/21 01/22/21 01/23/21 01/24/21 23:59 23:59 23:59 23:59 Intake Total 1989 1390 1670 400 Output Total 1799 1365 600 800 Balance 988 89 4366 -400 Meds/Results Medications: Active Medications Generic Name Dose Route Start Last Admin Trade Name Freq PRN Reason Stop Dose Admin Acetaminophen 650 mg 01/20/21 22:01 Acetaminophen 325 Mg Tablet PO Q4H PRN Mild Pain (1-3) or Fever Hydrocodone Bitart/Acetaminophen 2 tab 01/20/21 22:
[2021-01-24] MEDS: FAMOTIDINE 10 MG TABLET PO ×2 (08:51→20:05)
[2021-01-24] MEDS: GABAPENTIN 300 MG CAPSULE PO ×3 (08:51→16:38)
[2021-01-24] MEDS: SERTRALINE HCL 50 MG TABLET PO (08:51)
[2021-01-24] MEDS: methocarbamoL 500 MG TABLET PO ×4 (08:51→22:13)
[2021-01-24 09:47] VITALS: BP 119/78; PULSE 120; RESP 20; TEMP 36.3; O2SAT 95
[2021-01-24 14:00] VITALS: BP 129/90; PULSE 110; RESP 18; TEMP 35.8; O2SAT 97
[2021-01-24 17:47] VITALS: BP 119/79; PULSE 106; RESP 18; TEMP 37.1; O2SAT 96
[2021-01-24 19:14] VITALS: BP 138/89; PULSE 114; RESP 17; TEMP 36.6; O2SAT 96
[2021-01-24] MEDS: amLODIPine BESYLATE 5 MG TABLET 10 MG PO (20:05)
[2021-01-24] MEDS: ATORVASTATIN 40 MG TABLET PO (20:05)
[2021-01-24] MEDS: lisinopriL 20 MG TABLET PO (20:06)
[2021-01-24] MEDS: hydroCHLOROthiazide 25 MG TABLET PO (20:06)
[2021-01-24 23:15] VITALS: BP 135/86; PULSE 108; RESP 17; TEMP 36.6; O2SAT 95
[2021-01-25 03:25] VITALS: BP 111/69; PULSE 103; RESP 16; TEMP 36.6; O2SAT 96
[2021-01-25] MEDS: HYDROcodone/acetaminophen (*CRX) 5-325 MG TABLET 2 TAB PO ×5 (03:33→21:17)
--- NOTE | 2021-01-25 08:14 | PM.IMPN ---
Progress Note: A&P Assessment and Plan (1) Left hip pain: Code(s): M25.552 - Pain in left hip Status: Acute Assessment and Plan: MRI with no acute fractures. Symmetric mild bilateral hip OA with labral degeneration. L2-L4 laminectomies with increased signal in the posterior lumbosacral paraspinal musculature, right greater than left which can be seen with ongoing denervation change related to prior surgery. -Methocarbamol 500 mg four times a day as needed -Tylenol PRN -[place] PRN -Morphine PRN -Gabapentin 300 mg TID scheduled -Will try medrol dose caleb -Per care coordination patient will not be accepted to his previous inpatient rehab due to poor participation. Will offer home with home PT vs SNF. (2) Left flank pain: Code(s): R10.9 - Unspecified abdominal pain Status: Acute Assessment and Plan: CT of abdomen and pelvis showed nephrolithiasis on prior study. Pain more localized to the left hip and worse upon weight-bearing on it is likely to be a nephritic colic -Tylenol PRN (3) Acid reflux: Code(s): K21.9 - Gastro-esophageal reflux disease without esophagitis Status: Acute Assessment and Plan: Continue PPI (4) Chronic back pain: Code(s): M54.9 - Dorsalgia, unspecified; G89.29 - Other chronic pain Status: Acute Assessment and Plan: S/p spinal fusion surgery with resolution of his back pain. Tylenol as needed -Physical Therapy -Occupational (5) Hyperlipidemia: Code(s): E78.5 - Hyperlipidemia, unspecified Status: Acute Assessment and Plan: Continue statin (6) Hypertension: Code(s): I10 - Essential (primary) hypertension Status: Acute Assessment and Plan: Takes amlodipine 10 mg daily, lisinopril 20 mg daily and hydrochlorothiazide 25 mg po daily at home. -Home BP medications restarted (7) Central stenosis of spinal canal: Code(s): M48.00 - Spinal stenosis, site unspecified Status: Acute Assessment and Plan: Initial back surgery was a few years ago and patient did not have significant improvement of his pain. Latest back surgery was 01/12/2021, which has significantly improved patient back pain. Patient does have some residual clonus in the LLE. Subjective Date/time seen: Date of service 01/25/21 08:14 Patient reports he thinks he will be ready to return to inpatient rehab. He worked doing the stretches given to him by PT. Review of Systems Musculoskeletal: Musculoskeletal: Reports arthralgias and Reports stiffness Exam Narrative: GENERAL: NAD, lying on back HEENT: Normocephalic, atraumatic, anicteric, wearing eyeglasses NECK: Supple CV: Normal S1, S2, RRR, No MRG RESP: CTAB, Normal work of breathing. Abdomen: Soft, non-tender, non-distended, +BS EXTREMITIES: Warm and well perfused, no clubbing, cyanosis, or edema. SKIN: warm, dry and intact. NEURO: CN 2-12 grossly intact. Objective Data Vital Signs Vital Signs: Vital Signs - 24 hr 01/24/21 09:47 01/24/21 14:00 01/24/21 17:47 Temperature 97.4 F L 96.4 F L 98.8 F Pulse Rate 120 H 110 H 106 H Respiratory Rate 20 18 18 Blood Pressure 119/78 129/90 119/79 Pulse Oximetry 95 97 96 01/24/21 19:14 01/24/21 23:15 01/25/21 03:25 Temperature 97.8 F 97.8 F 97.9 F Pulse Rate 114 H 108 H 103 H Respiratory Rate 17 17 16 Blood Pressure 138/89 135/86 111/69 Pulse Oximetry 96 95 96 Intake/Output Intake/Output: Intake & Output 01/22/21 01/23/21 01/24/21 01/25/21 23:59 23:59 23:59 23:59 Intake Total 1390 1670 1180 400 Output Total 2509 013 2365 200 Balance 25 1070 -820 200 Meds/Results Medications: Active Medications Generic Name Dose Route Start Last Admin Trade Name Freq PRN Reason Stop Dose Admin Acetaminophen 650 mg 01/20/21 22:01 Acetaminophen 325 Mg Tablet PO Q4H PRN Mild Pain (1-3) or Fever Hydrocodone Bitart/Acetaminophen 2 tab 01/20/21 22:01 01/25/21 03:33
[2021-01-25] MEDS: SERTRALINE HCL 50 MG TABLET PO (08:46)
[2021-01-25] MEDS: FAMOTIDINE 10 MG TABLET PO ×2 (08:46→20:47)
[2021-01-25] MEDS: GABAPENTIN 300 MG CAPSULE PO ×3 (08:46→17:09)
[2021-01-25] MEDS: methocarbamoL 500 MG TABLET PO ×3 (08:47→17:09)
[2021-01-25 12:50] VITALS: BP 119/68; PULSE 108; RESP 16; TEMP 36.3; O2SAT 97
[2021-01-25] MEDS: methylPREDNISolone (MEDROL) DOSEPACK 4 MG TABLETS PO ×3 (15:01→20:48)
[2021-01-25 17:10] VITALS: BP 114/70; PULSE 118; RESP 16; TEMP 36.2; O2SAT 95
[2021-01-25 19:09] VITALS: BP 114/79; PULSE 117; RESP 17; TEMP 36.3; O2SAT 98
[2021-01-25] MEDS: amLODIPine BESYLATE 5 MG TABLET 10 MG PO (20:47)
[2021-01-25] MEDS: ATORVASTATIN 40 MG TABLET PO (20:47)
[2021-01-25] MEDS: lisinopriL 20 MG TABLET PO (20:47)
[2021-01-25] MEDS: hydroCHLOROthiazide 25 MG TABLET PO (20:47)
[2021-01-25 23:28] VITALS: BP 132/90; PULSE 115; RESP 17; TEMP 36.6; O2SAT 95
[2021-01-26 03:43] VITALS: BP 107/75; PULSE 101; RESP 16; TEMP 36.3; O2SAT 97
[2021-01-26] MEDS: HYDROcodone/acetaminophen (*CRX) 5-325 MG TABLET 2 TAB PO ×3 (05:35→20:51)
[2021-01-26] MEDS: methylPREDNISolone (MEDROL) DOSEPACK 4 MG TABLETS PO ×4 (05:35→20:49)
--- NOTE | 2021-01-26 07:22 | PM.IMPN ---
Progress Note: A&P Assessment and Plan (1) Left hip pain: Code(s): M25.552 - Pain in left hip Status: Acute Assessment and Plan: MRI with no acute fractures. Symmetric mild bilateral hip OA with labral degeneration. L2-L4 laminectomies with increased signal in the posterior lumbosacral paraspinal musculature, right greater than left which can be seen with ongoing denervation change related to prior surgery. -Methocarbamol 500 mg four times a day as needed -Tylenol PRN -[place] PRN -Morphine PRN -Gabapentin 300 mg TID scheduled -Will try medrol dose caleb -Per care coordination, [facility] is interested in accepting the patient but would like to have two days of documented work and assessment from PT AND OT. OT previously signed off but has been reordered today. (2) Left flank pain: Code(s): R10.9 - Unspecified abdominal pain Status: Acute Assessment and Plan: CT of abdomen and pelvis showed nephrolithiasis on prior study. Pain more localized to the left hip and worse upon weight-bearing on it is likely to be a nephritic colic -Tylenol PRN (3) Tachycardia: Code(s): R00.0 - Tachycardia, unspecified Status: Acute Assessment and Plan: Patient reports having tachycardia for the past few years after his first back surgery. He attributes it to his constant pain. There is no chest pain or difficulty bleeding. Given that it seem to be slowly increasing despite the patient reporting improvement in his pain. -D dimer today (4) Acid reflux: Code(s): K21.9 - Gastro-esophageal reflux disease without esophagitis Status: Acute Assessment and Plan: Continue PPI (5) Chronic back pain: Code(s): M54.9 - Dorsalgia, unspecified; G89.29 - Other chronic pain Status: Acute Assessment and Plan: S/p spinal fusion surgery with resolution of his back pain. Tylenol as needed -Physical Therapy -Occupational (6) Hyperlipidemia: Code(s): E78.5 - Hyperlipidemia, unspecified Status: Acute Assessment and Plan: Continue statin (7) Hypertension: Code(s): I10 - Essential (primary) hypertension Status: Acute Assessment and Plan: Takes amlodipine 10 mg daily, lisinopril 20 mg daily and hydrochlorothiazide 25 mg po daily at home. -Home BP medications restarted (8) Central stenosis of spinal canal: Code(s): M48.00 - Spinal stenosis, site unspecified Status: Acute Assessment and Plan: Initial back surgery was a few years ago and patient did not have significant improvement of his pain. Latest back surgery was 01/12/2021, which has significantly improved patient back pain. Patient does have some residual clonus in the LLE. Subjective Date/time seen: Date of Service 01/26/21 07:22 Patient says he feels better after the steroid as he can now lay on his back. Has not worked with PT today. Patient says he is amenable to discharging home with home health. Review of Systems Musculoskeletal: Musculoskeletal: Reports arthralgias and Reports stiffness Exam Narrative: GENERAL: NAD, lying on back HEENT: Normocephalic, atraumatic, anicteric, wearing eyeglasses NECK: Supple CV: Normal S1, S2, RRR, No MRG RESP: CTAB, Normal work of breathing. Abdomen: Soft, non-tender, non-distended, +BS EXTREMITIES: Warm and well perfused, no clubbing, cyanosis, or edema. SKIN: warm, dry and intact. NEURO: CN 2-12 grossly intact. Objective Data Vital Signs Vital Signs: Vital Signs - 24 hr 01/25/21 12:50 01/25/21 17:10 01/25/21 19:09 Temperature 97.4 F L 97.1 F L 97.3 F L Pulse Rate 108 H 118 H 117 H Respiratory Rate 16 16 17 Blood Pressure 119/68 114/70 114/79 Pulse Oximetry 97 95 98 01/25/21 23:28 01/26/21 03:43 Temperature 97.8 F 97.3 F L Pulse Rate 115 H 101 H Respiratory Rate 17 16 Blood Pressure 132/90 107/75 Pulse Oximetry 95 97 Intake/Output Intake/Output: Intake & Outp
[2021-01-26] MEDS: GABAPENTIN 300 MG CAPSULE PO ×3 (08:14→16:55)
[2021-01-26] MEDS: SERTRALINE HCL 50 MG TABLET PO (08:14)
[2021-01-26] MEDS: FAMOTIDINE 10 MG TABLET PO ×2 (08:14→20:49)
[2021-01-26 10:00] VITALS: BP 131/94; PULSE 124; RESP 18; TEMP 36.3; O2SAT 95
--- NOTE | 2021-01-26 13:20 | WPDCDIQUERY2 ---
CDI Query Clarification Request -Left hip pain documented as the reason for admission Please clarify if there is a diagnosis/possible diagnosis for cause of symptom hip pain. Thanks <Marily Ortiz RN - Last Filed: 01/28/21 07:31> hip pain secondray to osteoarthritis <Julisa Rodrigues MD - Last Filed: 01/28/21 08:30>
[2021-01-26 14:15] VITALS: BP 128/74; PULSE 118; RESP 18; TEMP 36.4; O2SAT 96
[2021-01-26] MEDS: ENOXAPARIN 40 MG/0.4 ML SYRINGE SUB-Q (16:55)
[2021-01-26 17:16] LABS: D Dimer 0.68 ug/mL (<0.48)
[2021-01-26 18:00] VITALS: BP 128/76; PULSE 115; RESP 18; TEMP 36.4; O2SAT 96
[2021-01-26 18:59] LABS: Anion Gap 11 mmol/L (8-16); Blood Urea Nitrogen 22 mg/dL (9-20); Calcium 10.1 mg/dL (8.4-10.2); Carbon Dioxide 27 mmol/L (22-30); Chloride 100 mmol/L (98-107); Estimated CRCL calculation 123 ml/min; Estimated Glomerular Filt Rate > 60; Glucose 212 mg/dL (65-110); Potassium 4.4 mmol/L (3.4-5.0); Sodium 138 mmol/L (137-145)
[2021-01-26 20:00] VITALS: PULSE 104; RESP 18; O2SAT 96
[2021-01-26] MEDS: SODIUM CHLORIDE 0.9% IV 1,000 ML 100 ML IV CONT (20:41)
[2021-01-26] MEDS: amLODIPine BESYLATE 5 MG TABLET 10 MG PO (20:49)
[2021-01-26] MEDS: lisinopriL 20 MG TABLET PO (20:49)
[2021-01-26] MEDS: ATORVASTATIN 40 MG TABLET PO (20:49)
[2021-01-26] MEDS: hydroCHLOROthiazide 25 MG TABLET PO (20:52)
[2021-01-26 22:00] VITALS: BP 144/85; PULSE 104; RESP 18; TEMP 36.2; O2SAT 96
[2021-01-26] MEDS: MORPHINE SULFATE (*CRX) 4 MG/ML INJ IV PUSH (22:42)
[2021-01-27] VITALS (7 sets, daily range): BP systolic 123–149; BP diastolic 70–97; PULSE 81–112; RESP 18–22; TEMP 36–36.9; O2SAT 96–98
[2021-01-27 05:38] LABS: Basophils Percent Auto 0.2 % (0.2-1.2); Eosinophils Percent Auto 0.1 % (0-4.4); Hematocrit 47.1 % (42.0-52.0); Immature Granulocyte Absolute 0.12 K/mm3 (0.00-0.031); Lymphocytes Absolute Auto 1.94 K/mm3 (0.9-3.2); Lymphocytes Percent Auto 15.6 % (18.3-44.2); Mean Corpuscular Hemoglobin 30.8 pg (26-34); Mean Corpuscular Volume 90.6 fl (80-100); Mean Platelet Volume 9.2 fl (7.4-10.4); Monocytes Absolute Auto 0.9 K/mm3 (0.1-0.6); Monocytes Percent Auto 7.2 % (2.6-8.5); Neutrophils Absolute Auto 9.4 K/mm3 (1.3-6.7); Neutrophils Percent Auto 75.9 % (45.5-73.1); Platelet Count Result 337 k/mm3 (150-375); Red Cell Distribution Width 12.4 % (11.5-14.5); White Blood Count 12.4 K/mm3 (4.5-10.0)
[2021-01-27] MEDS: methylPREDNISolone (MEDROL) DOSEPACK 4 MG TABLETS PO ×4 (05:40→20:52)
[2021-01-27 05:56] LABS: Anion Gap 10 mmol/L (8-16); Blood Urea Nitrogen 19 mg/dL (9-20); Calcium 9.5 mg/dL (8.4-10.2); Carbon Dioxide 27 mmol/L (22-30); Chloride 99 mmol/L (98-107); Estimated CRCL calculation 123 ml/min; Estimated Glomerular Filt Rate > 60; Glucose 211 mg/dL (65-110); Potassium 4.4 mmol/L (3.4-5.0); Sodium 136 mmol/L (137-145)
[2021-01-27] MEDS: ENOXAPARIN 40 MG/0.4 ML SYRINGE SUB-Q (08:23)
[2021-01-27] MEDS: HYDROcodone/acetaminophen (*CRX) 5-325 MG TABLET 2 TAB PO ×3 (08:23→20:51)
[2021-01-27] MEDS: GABAPENTIN 300 MG CAPSULE PO ×3 (08:27→17:00)
[2021-01-27] MEDS: FAMOTIDINE 10 MG TABLET PO ×2 (08:27→20:51)
[2021-01-27] MEDS: methocarbamoL 500 MG TABLET PO ×4 (08:27→20:52)
[2021-01-27] MEDS: SERTRALINE HCL 50 MG TABLET PO (08:27)
--- NOTE | 2021-01-27 09:27 | PM.IMPN ---
Progress Note: A&P Assessment and Plan (1) Left hip pain: Code(s): M25.552 - Pain in left hip Status: Acute Assessment and Plan: MRI with no acute fractures. Symmetric mild bilateral hip OA with labral degeneration. L2-L4 laminectomies with increased signal in the posterior lumbosacral paraspinal musculature, right greater than left which can be seen with ongoing denervation change related to prior surgery. -on CTA patient has calcified mass and the central canal probable meningioma -Methocarbamol 500 mg four times a day as needed -Tylenol PRN -[place] PRN -Morphine PRN -Gabapentin 300 mg TID scheduled -on medrol dose caleb -restart rehab y. (2) Left flank pain: Code(s): R10.9 - Unspecified abdominal pain Status: Acute Assessment and Plan: CT of abdomen and pelvis showed nephrolithiasis on prior study. Pain more localized to the left hip and worse upon weight-bearing on it is unlikely to be a nephritic colic -Tylenol PRN (3) Tachycardia: Code(s): R00.0 - Tachycardia, unspecified Status: Acute Assessment and Plan: Patient reports having tachycardia for the past few years after his first back surgery. He attributes it to his constant pain. There is no chest pain or difficulty bleeding. Given that it seem to be slowly increasing despite the patient reporting improvement in his pain. -CTA negative for PE (4) Acid reflux: Code(s): K21.9 - Gastro-esophageal reflux disease without esophagitis Status: Acute Assessment and Plan: Continue PPI (5) Chronic back pain: Code(s): M54.9 - Dorsalgia, unspecified; G89.29 - Other chronic pain Status: Acute Assessment and Plan: S/p spinal fusion surgery with resolution of his back pain CT showed spinal canal mass probable meningioma calcified. Tylenol as needed -Physical Therapy -Occupational (6) Hyperlipidemia: Code(s): E78.5 - Hyperlipidemia, unspecified Status: Acute Assessment and Plan: Continue statin (7) Hypertension: Code(s): I10 - Essential (primary) hypertension Status: Acute Assessment and Plan: Takes amlodipine 10 mg daily, lisinopril 20 mg daily and hydrochlorothiazide 25 mg po daily at home. -Home BP medications restarted (8) Central stenosis of spinal canal: Code(s): M48.00 - Spinal stenosis, site unspecified Status: Acute Assessment and Plan: Initial back surgery was a few years ago and patient did not have significant improvement of his pain. Latest back surgery was 01/12/2021, which has significantly improved patient back pain. Patient does have some residual clonus in the LLE. (9) Adrenal mass: Code(s): E27.8 - Other specified disorders of adrenal gland Status: Acute Assessment and Plan: Follow-up with PCP as outpatient Subjective Date/time seen: 01/27/21 09:27 Interval history: Patient seen and examined Patient patient still complains of left hip pain still has severe pain with any activity CTA was reviewed showed adrenal nodule and calcified mass and the spinal canal Patient denies fever headache chest pain shortness of breath I am seeing the patient for hypertension Exam Narrative: GENERAL: NAD, lying on back HEENT: Normocephalic, atraumatic, anicteric, wearing eyeglasses NECK: Supple CV: Normal S1, S2, RRR, No MRG RESP: CTAB, Normal work of breathing. Abdomen: Soft, non-tender, non-distended, +BS EXTREMITIES: Decreased range of movement in the left hip. SKIN: warm, dry and intact. NEURO: CN 2-12 grossly intact. Objective Data Vital Signs Vital Signs: Vital Signs - 24 hr 01/26/21 10:00 01/26/21 14:15 01/26/21 18:00 Temperature 97.4 F L 97.6 F 97.5 F L Pulse Rate 124 H 118 H 115 H Respiratory Rate 18 18 18 Blood Pressure 131/94 H 128/74 128/76 Pulse Oximetry 95 96 96 01/26/21 20:00 01/26/21 22:00 01/27/21 02:00 Temperature 97.1 F L 96.8 F L Pu
[2021-01-27] MEDS: amLODIPine BESYLATE 5 MG TABLET 10 MG PO (20:51)
[2021-01-27] MEDS: lisinopriL 20 MG TABLET PO (20:51)
[2021-01-27] MEDS: hydroCHLOROthiazide 25 MG TABLET PO (20:51)
[2021-01-27] MEDS: ATORVASTATIN 40 MG TABLET PO (20:51)
[2021-01-28] VITALS (8 sets, daily range): BP systolic 119–150; BP diastolic 76–103; PULSE 94–110; RESP 16–22; TEMP 36.6–36.9; O2SAT 93–100
[2021-01-28] MEDS: HYDROcodone/acetaminophen (*CRX) 5-325 MG TABLET 2 TAB PO ×2 (05:38→20:55)
[2021-01-28] MEDS: methocarbamoL 500 MG TABLET PO ×4 (05:38→20:56)
[2021-01-28] MEDS: methylPREDNISolone (MEDROL) DOSEPACK 4 MG TABLETS PO ×3 (05:38→20:55)
[2021-01-28] MEDS: GABAPENTIN 300 MG CAPSULE PO ×3 (08:24→17:06)
[2021-01-28] MEDS: FAMOTIDINE 10 MG TABLET PO ×2 (08:25→20:55)
[2021-01-28] MEDS: ENOXAPARIN 40 MG/0.4 ML SYRINGE SUB-Q (08:25)
[2021-01-28] MEDS: SERTRALINE HCL 50 MG TABLET PO (08:25)
--- NOTE | 2021-01-28 08:30 | PM.IMPN ---
Progress Note: A&P Assessment and Plan (1) Left hip pain: Code(s): M25.552 - Pain in left hip Status: Acute Assessment and Plan: MRI with no acute fractures. Symmetric mild bilateral hip OA with labral degeneration. L2-L4 laminectomies with increased signal in the posterior lumbosacral paraspinal musculature, right greater than left which can be seen with ongoing denervation change related to prior surgery. -on CTA patient has calcified mass and the central canal probable meningioma -Methocarbamol 500 mg four times a day as needed -Tylenol PRN -[place] PRN -Morphine PRN -Gabapentin 300 mg TID scheduled -on medrol dose caleb - probable discharge to rehab in a.m. (2) Left flank pain: Code(s): R10.9 - Unspecified abdominal pain Status: Acute Assessment and Plan: CT of abdomen and pelvis showed nephrolithiasis on prior study. Pain more localized to the left hip and worse upon weight-bearing on it is unlikely to be a nephritic colic -Tylenol PRN (3) Tachycardia: Code(s): R00.0 - Tachycardia, unspecified Status: Acute Assessment and Plan: Patient reports having tachycardia for the past few years after his first back surgery. He attributes it to his constant pain. There is no chest pain or difficulty bleeding. Given that it seem to be slowly increasing despite the patient reporting improvement in his pain. -CTA negative for PE (4) Acid reflux: Code(s): K21.9 - Gastro-esophageal reflux disease without esophagitis Status: Acute Assessment and Plan: Continue PPI (5) Chronic back pain: Code(s): M54.9 - Dorsalgia, unspecified; G89.29 - Other chronic pain Status: Acute Assessment and Plan: S/p spinal fusion surgery with resolution of his back pain CT showed spinal canal mass probable meningioma calcified. Tylenol as needed -Physical Therapy -Occupational (6) Hyperlipidemia: Code(s): E78.5 - Hyperlipidemia, unspecified Status: Acute Assessment and Plan: Continue statin (7) Hypertension: Code(s): I10 - Essential (primary) hypertension Status: Acute Assessment and Plan: Takes amlodipine 10 mg daily, lisinopril 20 mg daily and hydrochlorothiazide 25 mg po daily at home. -Home BP medications restarted (8) Central stenosis of spinal canal: Code(s): M48.00 - Spinal stenosis, site unspecified Status: Acute Assessment and Plan: Initial back surgery was a few years ago and patient did not have significant improvement of his pain. Latest back surgery was 01/12/2021, which has significantly improved patient back pain. Patient does have some residual clonus in the LLE. better (9) Adrenal mass: Code(s): E27.8 - Other specified disorders of adrenal gland Status: Acute Assessment and Plan: Follow-up with PCP as outpatient probable discharge to rehab in a.. Subjective Date/time seen: 01/28/21 08:30 Interval history: Patient seen and examined Patient patient still complains of left hip pain still has severe pain with any activity CTA was reviewed showed adrenal nodule and calcified mass and the spinal canal hip pain is improving expect discharge to rehab in a.. Patient denies fever headache chest pain shortness of breath I am seeing the patient for hypertension Exam Narrative: GENERAL: NAD, lying on back HEENT: Normocephalic, atraumatic, anicteric, wearing eyeglasses NECK: Supple CV: Normal S1, S2, RRR, No MRG RESP: CTAB, Normal work of breathing. Abdomen: Soft, non-tender, non-distended, +BS EXTREMITIES: Decreased range of movement in the left hip. SKIN: warm, dry and intact. NEURO: CN 2-12 grossly intact. Objective Data Vital Signs Vital Signs: Vital Signs - 24 hr 01/27/21 09:55 01/27/21 14:10 01/27/21 18:35 Temperature 98.3 F 98.1 F 98.1 F Pulse Rate 104 H 102 H 112 H Respiratory Rate 22 H 20 20 Blood Pressure 136/88 136
[2021-01-28 09:41] LABS: Basophils Absolute Auto 0.1 K/mm3 (0.0-0.1); Basophils Percent Auto 0.6 % (0.2-1.2); Eosinophils Absolute Auto 0.1 K/mm3 (0-0.3); Eosinophils Percent Auto 0.5 % (0-4.4); Hemoglobin 16.9 g/dL (14.0-18.0); Immature Granulocyte Percent A 1.5 % (0-0.5); Lymphocytes Absolute Auto 3.07 K/mm3 (0.9-3.2); Lymphocytes Percent Auto 23.2 % (18.3-44.2); Mean Corpuscular HGB Conc 34.5 g/dl (32-36); Mean Corpuscular Hemoglobin 30.5 pg (26-34); Mean Corpuscular Volume 88.3 fl (80-100); Mean Platelet Volume 9.3 fl (7.4-10.4); Monocytes Absolute Auto 1.1 K/mm3 (0.1-0.6); Monocytes Percent Auto 8.3 % (2.6-8.5); Neutrophils Absolute Auto 8.7 K/mm3 (1.3-6.7); Neutrophils Percent Auto 65.9 % (45.5-73.1); Platelet Count Result 391 k/mm3 (150-375); Red Blood Count 5.55 M/mm3 (4.6-6.20); Red Cell Distribution Width 12.3 % (11.5-14.5); White Blood Count 13.2 K/mm3 (4.5-10.0)
[2021-01-28 09:52] LABS: Alanine Aminotransferase 24 U/L (4-50); Albumin Level 4.6 g/dL (3.5-5.1); Alkaline Phosphatase 128 U/L (38-126); Anion Gap 17 mmol/L (8-16); Aspartate Amino Transferase 24 U/L (17-59); Bilirubin,Total 0.5 mg/dL (0.2-1.3); Blood Urea Nitrogen 19 mg/dL (9-20); Carbon Dioxide 24 mmol/L (22-30); Chloride 99 mmol/L (98-107); Estimated CRCL calculation 123 ml/min; Estimated Glomerular Filt Rate > 60; Glucose 221 mg/dL (65-110); Potassium 3.4 mmol/L (3.4-5.0); Sodium 140 mmol/L (137-145)
--- NOTE | 2021-01-28 11:45 | PCOTNOTE ---
On 01/28/21, the student, Kimberly Aguilar, provided care and [facility]. I have reviewed the student's documentation and agree with the findings.
[2021-01-28] MEDS: hydroCHLOROthiazide 25 MG TABLET PO (20:55)
[2021-01-28] MEDS: lisinopriL 20 MG TABLET PO (20:55)
[2021-01-28] MEDS: ATORVASTATIN 40 MG TABLET PO (20:55)
[2021-01-28] MEDS: amLODIPine BESYLATE 5 MG TABLET 10 MG PO (20:55)
[2021-01-29 03:41] VITALS: BP 110/71; PULSE 94; RESP 17; TEMP 35.8; O2SAT 96
[2021-01-29] MEDS: HYDROcodone/acetaminophen (*CRX) 5-325 MG TABLET 2 TAB PO ×2 (05:53→15:20)
[2021-01-29] MEDS: methocarbamoL 500 MG TABLET PO ×2 (05:53→15:20)
[2021-01-29] MEDS: methylPREDNISolone (MEDROL) DOSEPACK 4 MG TABLETS PO (05:53)
[2021-01-29 08:46] LABS: Basophils Absolute Auto 0.1 K/mm3 (0.0-0.1); Basophils Percent Auto 0.5 % (0.2-1.2); Eosinophils Absolute Auto 0.1 K/mm3 (0-0.3); Eosinophils Percent Auto 0.6 % (0-4.4); Hematocrit 48.5 % (42.0-52.0); Hemoglobin 16.7 g/dL (14.0-18.0); Immature Granulocyte Absolute 0.17 K/mm3 (0.00-0.031); Immature Granulocyte Percent A 1.6 % (0-0.5); Lymphocytes Absolute Auto 2.18 K/mm3 (0.9-3.2); Lymphocytes Percent Auto 20.9 % (18.3-44.2); Mean Corpuscular HGB Conc 34.4 g/dl (32-36); Mean Corpuscular Hemoglobin 31.2 pg (26-34); Mean Corpuscular Volume 90.5 fl (80-100); Monocytes Percent Auto 9.3 % (2.6-8.5); Neutrophils Percent Auto 67.1 % (45.5-73.1); Platelet Count Result 315 k/mm3 (150-375); Red Blood Count 5.36 M/mm3 (4.6-6.20); Red Cell Distribution Width 12.5 % (11.5-14.5); White Blood Count 10.4 K/mm3 (4.5-10.0)
[2021-01-29 08:57] LABS: Alanine Aminotransferase 28 U/L (4-50); Albumin Level 4.3 g/dL (3.5-5.1); Alkaline Phosphatase 128 U/L (38-126); Anion Gap 9 mmol/L (8-16); Aspartate Amino Transferase 26 U/L (17-59); Bilirubin,Total 0.3 mg/dL (0.2-1.3); Blood Urea Nitrogen 19 mg/dL (9-20); Calcium 9.6 mg/dL (8.4-10.2); Carbon Dioxide 27 mmol/L (22-30); Chloride 98 mmol/L (98-107); Estimated CRCL calculation 140 ml/min; Estimated Glomerular Filt Rate > 60; Glucose 267 mg/dL (65-110); Sodium 134 mmol/L (137-145)
[2021-01-29] MEDS: ENOXAPARIN 40 MG/0.4 ML SYRINGE SUB-Q (09:02)
[2021-01-29] MEDS: GABAPENTIN 300 MG CAPSULE PO ×2 (09:02→12:48)
[2021-01-29] MEDS: FAMOTIDINE 10 MG TABLET PO (09:02)
[2021-01-29] MEDS: SERTRALINE HCL 50 MG TABLET PO (09:02)
[2021-01-29 10:00] VITALS: BP 122/79; PULSE 112; RESP 18; TEMP 37.1; O2SAT 95
--- NOTE | 2021-01-29 10:16 | PM.DS ---
DS: Admitting Diagnosis Discharge Date 01/21/2021 Admitting Diagnosis Left hip pain DS: Discharge Diagnosis Discharge Diagnosis (1) Left hip pain: Code(s): M25.552 - Pain in left hip Status: Acute Assessment and Plan: MRI with no acute fractures. Symmetric mild bilateral hip OA with labral degeneration. L2-L4 laminectomies with increased signal in the posterior lumbosacral paraspinal musculature, right greater than left which can be seen with ongoing denervation change related to prior surgery. -on CTA patient has calcified mass and the central canal probable meningioma -Methocarbamol 500 mg four times a day as needed -lidocaine as needed -[place] PRN -Morphine PRN -Gabapentin 300 mg TID scheduled -patient will be discharged on oral prednisone for 2 more days. (2) Left flank pain: Code(s): R10.9 - Unspecified abdominal pain Status: Acute Assessment and Plan: CT of abdomen and pelvis showed nephrolithiasis on prior study. Pain more localized to the left hip and worse upon weight-bearing on it is unlikely to be a nephritic colic -pain control (3) Tachycardia: Code(s): R00.0 - Tachycardia, unspecified Status: Acute Assessment and Plan: Patient reports having tachycardia for the past few years after his first back surgery. He attributes it to his constant pain. There is no chest pain or difficulty bleeding. Given that it seem to be slowly increasing despite the patient reporting improvement in his pain. -CTA negative for PE (4) Acid reflux: Code(s): K21.9 - Gastro-esophageal reflux disease without esophagitis Status: Acute Assessment and Plan: Continue PPI (5) Chronic back pain: Code(s): M54.9 - Dorsalgia, unspecified; G89.29 - Other chronic pain Status: Acute Assessment and Plan: S/p spinal fusion surgery with resolution of his back pain CT showed spinal canal mass probable meningioma calcified. Tylenol as needed -Physical Therapy -Occupational (6) Hyperlipidemia: Code(s): E78.5 - Hyperlipidemia, unspecified Status: Acute Assessment and Plan: Continue statin (7) Hypertension: Code(s): I10 - Essential (primary) hypertension Status: Acute Assessment and Plan: Takes amlodipine 10 mg daily, lisinopril 20 mg daily and hydrochlorothiazide 25 mg po daily at home. -Home BP medications restarted (8) Central stenosis of spinal canal: Code(s): M48.00 - Spinal stenosis, site unspecified Status: Acute Assessment and Plan: Initial back surgery was a few years ago and patient did not have significant improvement of his pain. Latest back surgery was 01/12/2021, which has significantly improved patient back pain. Patient does have some residual clonus in the LLE. better (9) Adrenal mass: Code(s): E27.8 - Other specified disorders of adrenal gland Status: Acute Assessment and Plan: Follow-up with PCP as outpatient Patient aware. DS: Summary Hospital Course Hospital Course: Patient was admitted to the hospital with left hip pain was found to have probable osteoarthritis required pain control orthopedic was consulted follow-up with Orthopedic as outpatient patient also has CT scan has above would do not you since in calcified mass follow-up with PCP and orthopedic as outpatient Time Spent with Patient Time attestation: Total time spent providing and/or coordinating discharge services: Exam Narrative: GENERAL: NAD, lying on back HEENT: Normocephalic, atraumatic, anicteric, wearing eyeglasses NECK: Supple CV: Normal S1, S2, RRR, No MRG RESP: CTAB, Normal work of breathing. Abdomen: Soft, non-tender, non-distended, +BS EXTREMITIES: Decreased range of movement in the left hip. SKIN: warm, dry and intact. NEURO: CN 2-12 grossly intact. DS: Data Data Completed and Pending Labs on day of discharge: Labs from last 24 hours 01/29/21
[2021-01-29 14:00] VITALS: BP 129/93; PULSE 113; RESP 18; TEMP 36.7; O2SAT 97
--- NOTE | 2021-01-29 14:47 | PCOTNOTE ---
Attempted to see pt for OT treatment. Pt. reports he is being D/C from the hospital this afternoon and does not want to participate in therapy at this time.
== END 2021-01-29 17:05 | disposition home health service (06) | DRG 556 ==
LOC: ANHED 14:23 → ANH2MED 22:38
PROVIDERS: Family Medicine; Admitting Provider Internal Medicine; Emergency Provider Emergency Medicine; Visit Provider Internal Medicine
DX: M25.552 Pain in left hip (principal); M16.0 Bilateral primary osteoarthritis of hip; R10.9 Unspecified abdominal pain; R00.0 Tachycardia, unspecified; K21.9 Gastro-esophageal reflux disease without esophagitis; M54.9 Dorsalgia, unspecified; G89.29 Other chronic pain; I10 Essential (primary) hypertension; E78.5 Hyperlipidemia, unspecified; M48.00 Spinal stenosis, site unspecified; D32.1 Benign neoplasm of spinal meninges; E27.8 Other specified disorders of adrenal gland; Z87.891 Personal history of nicotine dependence; Z98.1 Arthrodesis status; Z79.899 Other long term (current) drug therapy
CPT/HCPCS: 36415; 71275; 72146; 72148; 73721; 80048; 80053; 83036; 85025; 85380; 85652; 86140; 87040; 87077; 87186; 93005; 96374; 96375; 96376; 97110; 97116; 97161; 97165; 97166; 97530; 97535; 99285; A9270; G0378; J1100; J1650; J2060; J2270; J7030; Q9967